=== PATIENT | female | born 1980 | race Caucasian/White ===

== ENCOUNTER 2020-07-06 10:44 | Emergency (ER) | payer SELFPAY ==
[~2020-07-06] VITALS: Ht 154.9 cm; Wt 68.0 kg
--- NOTE | 2020-07-06 10:48 | NUR ---
PT TAKEN TO ER BED 12
[2020-07-06 10:52] VITALS: BP 150/91
--- NOTE | 2020-07-06 10:52 | NUR ---
EMT AT BEDSIDE FOR EKG
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
[2020-07-06] MEDS ORDERED: KETOROLAC 60 MG/2 ML VIAL IM ONE (12:25)
[2020-07-06 12:59] VITALS: BP 124/76
--- NOTE | 2020-07-06 12:59 | NUR ---
Patient discharged with v/s stable. Written and verbal after care instructions given and explained. Patient alert, oriented and verbalized understanding of instructions. Ambulatory with steady gait. All questions addressed prior to discharge. ID band removed. Patient advised to follow up with PMD. Rx of TRAMADOL AND MOTRIN given. Patient educated on indication of medication including possible reaction and side effects. Opportunity to ask questions provided and answered.
== END 2020-07-06 12:59 | disposition home or self-care (01) ==
LOC: MED 10:44
DX: R07.89 Other chest pain (principal); J45.909 Unspecified asthma, uncomplicated; F17.200 Nicotine dependence, unspecified, uncomplicated
CPT/HCPCS: 71045; 93005; 96372; 99283; J1885; Q0092